=== PATIENT | female | born 1955 | race Caucasian/White ===

== ENCOUNTER 2020-03-19 17:45 | Emergency (ER) | payer MEDICARE, MEDICAID ==
[2020-03-19] MEDS ORDERED: Ketorolac Tromethamine 30 MG/ML VIAL ONE (18:32)
[2020-03-19 18:41] LABS: Hemoglobin 11.1 g/dL (12.0-16.0); Mean Corpuscular HGB CONC 28.7 g/dL (32.0-36.0); Mean Corpuscular Hemoglobin 23.8 pg (27.0-31.0); Mean Platelet Volume 5.9 fL (7.4-10.4); Platelet Count 248 thou/uL (130-400); RBC Distribution Width 20.8 % (11.5-14.5); Red Blood Cell (RBC) Count 4.64 mill/uL (4.20-5.40)
[2020-03-19 18:49] LABS: #Basophils 0.1 thou/uL (0.0-0.2); #Eosinphils 0.2 thou/uL (0.0-0.7); #Monocytes 0.4 thou/uL (0.11-0.59); #Neutrophils 3.4 thou/uL (1.40-6.50); %Basophils 1.4 % (0.0-1.0); %Eosinophils 3.5 % (0.0-10.0); %Lymphocytes 32.3 % (21.0-51.0); %Monocytes 6.3 % (0.0-10.0); %Neutrophils 56.6 % (42.0-75.0); Elliptocytes SLIGHT = 2-5 cells (100X) (0-1/hpf); Hypochromia SLIGHT = 6-15 cells (100X) (0-5/hpf); MDiff Complete? YES; Macrocytosis MODERATE=16-30 cells (100X) (0-5/hpf); Microcytosis SLIGHT = 6-15 cells (100X) (0-5/hpf)
[2020-03-19 18:51] LABS: ALT (SGPT) 11 U/L (8-55); AST (SGOT) 15 U/L (5-34); Albumin 3.3 g/dL (3.4-4.8); Alkaline Phosphatase 76 U/L (40-110); Anion Gap 13 mmol/L (10-20); BUN (Urea Nitrogen) 16 mg/dL (9.8-20.1); Bilirubin, Total 0.3 mg/dL (0.2-1.2); Calc. Creatinine Clearance 0 mL/min (70-130); Calcium 8.9 mg/dL (7.8-10.44); Carbon Dioxide 28 mmol/L (23-31); Chloride 107 mmol/L (98-107); Estimated GFR-MDRD 48; Globulin 3.5 g/dL (2.4-3.5); Glucose 120 mg/dL (80-115); Potassium 3.9 mmol/L (3.5-5.1); Protein, Total 6.8 g/dL (6.0-8.3); Sodium 144 mmol/L (136-145)
[2020-03-19 19:00] LABS: Bilirubin Small (Negative); Blood, Urine Negative (Negative); Clarity Cloudy (Clear); Glucose, Urine (Dipstick) Negative (Negative); Ketone, Urine Trace mg/dL (Negative); Leukocyte Negative (Negative); Nitrite Negative (Negative); Protein, Urine (Dipstick) 30 mg/dL (Neg-Trace); Specific Gravity, Urine 1.025 (1.005-1.030)
[2020-03-19 19:02] LABS: Bacteria/HPF 3+ HPF (None Seen); Mucous/LPF 1+ LPF (<2+); RBC/HPF None Seen HPF (0-3); WBC/HPF 0-3 HPF (0-3)
[2020-03-19] MEDS ORDERED: Cyclobenzaprine 10 MG TAB ONE (19:11)
== END 2020-03-19 21:00 | disposition home or self-care (01) ==
LOC: BURERS 17:45
DX: M54.5 Low back pain (principal); M54.6 Pain in thoracic spine; G89.29 Other chronic pain; E11.9 Type 2 diabetes mellitus without complications; I10 Essential (primary) hypertension; E78.00 Pure hypercholesterolemia, unspecified; Z86.73 Personal history of transient ischemic attack (TIA), and cerebral infarction without residual deficits; M79.7 Fibromyalgia; F31.9 Bipolar disorder, unspecified; Z87.891 Personal history of nicotine dependence; Z79.899 Other long term (current) drug therapy
CPT/HCPCS: 80053; 81003; 81015; 85025; 96361; 96374; J1885

== ENCOUNTER 2020-04-01 18:06 | Emergency (ER) | payer MEDICARE, MEDICAID ==
[2020-04-01] MEDS ORDERED: Ketorolac Tromethamine 30 MG/ML VIAL ONE (19:06)
[2020-04-01] MEDS ORDERED: HYDROcodone/Acetaminophen 10/325 mg Tablet ONE (19:06)
--- NOTE | 2020-04-01 21:25 | RAD ---
LEFT HUMERUS TWO VIEWS: 04/01/20 No fracture or dislocation was seen. Degenerative changes are seen in the AC joint. The elbow is not adequately evaluated, however. The articulations of the bones at the elbow seem unusual but this area is not seen well enough to comment on further. Correlate with any symptoms in this location. IMPRESSION: No fracture seen. See comments on elbow. Code T POS: HOME
== END 2020-04-01 20:20 | disposition home or self-care (01) ==
LOC: BURERS 18:06
DX: S40.022A Contusion of left upper arm, initial encounter (principal); E11.9 Type 2 diabetes mellitus without complications; I10 Essential (primary) hypertension; E78.00 Pure hypercholesterolemia, unspecified; Z86.73 Personal history of transient ischemic attack (TIA), and cerebral infarction without residual deficits; M79.7 Fibromyalgia; F17.290 Nicotine dependence, other tobacco product, uncomplicated; Z79.899 Other long term (current) drug therapy; W07.XXXA Fall from chair, initial encounter
CPT/HCPCS: 96372; J1885